=== PATIENT | female | born 1975 | race Asian ===

== ENCOUNTER 2017-04-04 08:52 | Emergency (ER) | payer OTHER ==
[2017-04-04] MEDS ORDERED: KETOROLAC 15 MG/1 ML SDV IVP ONE ×2 (09:01)
--- NOTE | 2017-04-04 09:08 | CPEKG ---
Heart Rate: 61 RR Interval: 984 P-R Interval: 164 QRSD Interval: 78 QT Interval: 404 QTC Interval: 407 P [place]: 49 QRS [place]: 69 T Wave [place]: 15 EKG Severity - NORMAL ECG - EKG Impression: SINUS RHYTHM Electronically Signed By: Kiana Hawk 04-Apr-2017 14:11:22
--- NOTE | 2017-04-04 09:08 | CPEKG ---
Heart Rate: 61 RR Interval: 984 P-R Interval: 164 QRSD Interval: 78 QT Interval: 404 QTC Interval: 407 P [place]: 49 QRS [place]: 69 T Wave [place]: 15 EKG Severity - NORMAL ECG - EKG Impression: SINUS RHYTHM Electronically Signed By: Kiana Hawk 04-Apr-2017 14:11:22
--- NOTE | 2017-04-04 09:13 | EDPHY ---
H & P Time Seen by Provider: 04/04/17 08:59 HPI/ROS: CHIEF COMPLAINT: Left-sided chest pain HISTORY OF PRESENT ILLNESS: 42-year-old female presents with left-sided chest pain. Onset of a sharp and stabbing pain in the left chest at 7:00 p.m. yesterday. The pain lasted a few seconds and then became a dull ache. 2 subsequent episodes throughout the night of sharp and stabbing and transient pain. No other associated symptoms. No clear aggravating or alleviating factors. No prior history of similar symptoms. She also has numbness in the left palm over the last 3 days, without change. No recent neck pain or neck injury. Cardiac risk factors negative. Nonsmoker; no family history; no hypertension, diabetes or hypercholesterolemia. REVIEW OF SYSTEMS: Constitutional: No fever, no chills Eyes: No visual changes ENT: No sore throat Respiratory: No cough, no shortness of breath Gastrointestinal: No nausea, no vomiting, no abdominal pain Genitourinary: no dysuria Musculoskeletal: No leg pain or swelling Skin: No rash Neurological: No headache, no weakness Psychiatric: No depression Past Medical/Surgical History: Denies Social History: PCP at [facility] Smoking Status: Never smoked Physical Exam: General Appearance: Alert, pleasant Eyes: Pupils equal and round, no conjunctival pallor or injection ENT, Mouth: Mucous membranes moist Neck: Normal inspection, no tenderness, range of motion without pain Respiratory: normal inspection, point tenderness under the left breast laterally, lungs are clear to auscultation Cardiovascular: Regular rate and rhythm Gastrointestinal: Abdomen is soft and nontender Neurological: A&O, motor 5/5, decreased sensation to light touch over the palm of the left hand only, normal gait Skin: Warm and dry, no rash Extremities: Nontender, no pedal edema, negative Homans sign Vascular: 2+ radial pulse Psychiatric: Mood and affect normal Constitutional: Initial Vital Signs Temperature (C) 36.6 C 04/04/17 08:55 Heart Rate 70 04/04/17 08:55 Respiratory Rate 16 04/04/17 08:55 Blood Pressure 155/87 H 04/04/17 08:55 O2 Sat (%) 98 04/04/17 08:55 O2 Delivery Mode Room Air Allergies/Adverse Reactions: No Known Allergies Allergy (Verified 04/04/17 08:55) Home Medications: Medication Instructions Recorded NK [No Known Home Meds] 04/04/17 Medical Decision Making - Diagnostics EKG Interpretation: EKG reveals normal sinus rhythm, normal axis and intervals, no ST or T-segment changes. INTERPRETATION: This is interpreted by me as a normal EKG. Imaging Results: Chest x-ray independently reviewed by me reveals no acute disease. ED Course/Re-evaluation: This patient presents with atypical chest pain. Vital signs are normal and physical exam reveals chest wall tenderness. EKG reveals no ischemia and no dysrhythmia. No risk factors for acute coronary syndrome or pulmonary embolism. Likely musculoskeletal etiology of pain. Toradol 15 mg IV given. After careful consideration and evaluation, I find no evidence of acute coronary syndrome. The patient has no risk factors for coronary disease, normal EKG and normal studies. In addition, I feel that I can safely exclude pulmonary embolism, with normal vital signs, normal oxygen saturation and D- dimer. In addition there is no evidence of pneumothorax, pneumonia, aortic dissection. Most likely musculoskeletal etiology of pain. Feels better after Toradol 15 mg IV. Ibuprofen instructions given. Differential Diagnosis: Differential diagnosis includes though it is not limited to pneumonia, pneumothorax, pulmonary embolism, aortic dissection, pericarditis, acute coronary syndrome. - Data Points Laboratory Results: Laboratory Results 04/04/17 09:23 04/04/17 09:23 04/04/17 04/04/17 04/04/17 09:23 09:23 09:23 WBC 5.63 10^3/uL 10^3/uL (3.80-9.50) RBC 4.46 10^6/uL 10^6/uL (4.18-5.33) Hgb 13.9 g/dL g/dL (12.6-16.3) Hct 40.4 % % (38.0-47.0) MCV 90.6 fL fL (81.5-99.8) MCH 31.2 pg pg (27.9-34.1) MCHC 34.4 g/dL g/dL (32.4-36.7) RDW 13.2 % % (11.5-15.2) Plt Count 257 10^3/uL 10^3/uL (150-400) MPV 9.6 fL fL (8.7-11.7) Neut % (Auto) 61.1 % % (39.3-74.2) Lymph % (Auto) 29.7 % % (15.0-45.0) [place] % (Auto) 6.7 % % (4.5-13.0) Eos % (Auto) 0.5 % L % (0.6-7.6) Baso % (Auto) 1.1 % % (0.3-1.7) Nucleat RBC Rel Count 0.0 % % (0.0-0.2) Absolute Neuts (auto) 3.44 10^3/uL 10^3/uL (1.70-6.50) Absolute Lymphs (auto) 1.67 10^3/uL 10^3/uL (1.00-3.00) Absolute Monos (auto) 0.38 10^3/uL 10^3/uL (0.30-0.80) Absolute Eos (auto) 0.03 10^3/uL 10^3/uL (0.03-0.40) Absolute Basos (auto) 0.06 10^3/uL 10^3/uL (0.02-0.10) Absolute Nucleated RBC 0.00 10^3/uL 10^3/uL (0-0.01) Immature Gran % 0.9 % % (0.0-1.1) Immature Gran # 0.05 10^3/uL 10^3/uL (0.00-0.10) D-Dimer 0.29 ug/mLFEU ug/mLFEU (0.00-0.50) Sodium 141 mEq/L mEq/L (134-144) Potassium 3.8 mEq/L mEq/L (3.5-5.2) Chloride 104 mEq/L mEq/L (97-110) Carbon Dioxide 26 mEq/l mEq/l (22-31) Anion Gap 11 mEq/L mEq/L (8-16) BUN 10 mg/dL mg/dL (7-23) Creatinine 0.8 mg/dL mg/dL (0.6-1.0) Estimated GFR > 60 Glucose 80 mg/dL mg/dL (70-100) Calcium 9.4 mg/dL mg/dL (8.5-10.4) Troponin I < 0.012 ng/mL ng/mL (0.000-0.034) Medications Given: Discontinued Medications Ketorolac Tromethamine (Toradol) 15 mg IVP EDNOW ONE Stop: 04/04/17 09:02 Last Admin: 04/04/17 09:43 Dose: 15 mg Departure - Departure Disposition: Home, Routine, Self-Care Clinical Impression: Chest wall pain Condition: Good Instructions: Chest Pain (ED) Additional Instructions: Ibuprofen 600 mg 3 times daily while the pain persists. Return for worsening symptoms or any concerns. Follow up with primary care provider.
[2017-04-04] MEDS ORDERED: fentaNYL 100 MCG/2 ML INJ ONE ×2 (09:14)
[2017-04-04 09:32] LABS: PLATELET COUNT 257 10^3/uL (150-400)
[2017-04-04 10:09] VITALS: BP 122/75; PULSE 57; RESP 18; TEMP 98.1; O2SAT 95
== END 2017-04-04 10:16 | disposition home or self-care (01) ==
DX: R07.89 Other chest pain (principal)
CPT/HCPCS: 96374; J1885; J3010